=== PATIENT | male | born 1990 | race African-American/Black ===

== ENCOUNTER 2019-08-18 21:01 | Emergency (ER) | payer SELFPAY ==
[~2019-08-18] VITALS: Ht 177.8 cm; Wt 81.8 kg
--- NOTE | 2019-08-18 21:48 | PHYS DOC ---
Past Medical History Past Medical History: No Pertinent History (STEFANY STONE APRN) Past Surgical History: No Surgical History (STEFANY STONE APRN) Smoking Status: Never Smoker Alcohol Use: Occasionally (STEFANY STONE APRN) Attending Signature I have participated in the care of this patient and I have reviewed and agree with all pertinent clinical information above including history, exam, and recommendations. (DOUGIE AN MD) Adult General Chief Complaint Chief Complaint: LACERATION/[facility]ION [facility] Patient is a 29 year old male who presents with laceration to the left forearm. The patient cut his forearm on accident with some glass 4 hours prior to arrival. Denies any other symptoms. States he tried to stay home however would not stop bleeding. Does not know when his last tetanus shot was. Complete ROS were reviewed and found to be within normal limits, except as docum ented in the [facility] (STEFANY STONE APRN) Current Medications Current Medications Current Medications Medications (Trade) Dose Ordered Sig/Al Start Time Stop Time Status Last Admin Dose Admin Diphtheria/ Tetanus/Acell Pertussis (ADACEL TDap SYRINGE) 0.5 ml ONCE ONCE 08/18/19 22:00 08/18/19 22:01 DC 08/18/19 21:56 0.5 ML Lidocaine/ Epinephrine (LIDOCAINE 2%-EPI 1:100,000 multi-dose) 20 ml 1X ONCE 08/18/19 22:00 08/18/19 22:01 DC 08/18/19 22:00 20 ML Neomycin/ Polymyxin/ Bacitracin (Triple Antibiotic Ointment) 1 pkt 1X ONCE 08/18/19 22:45 08/18/19 22:46 DC 08/18/19 22:47 1 PKT (DOUGIE AN MD) Allergies Allergies Allergies Coded Allergies Type Severity Reaction Last Updated Verified iodine Allergy Severe 08/18/19 Yes Uncoded Allergies Type Severity Reaction Last Updated Verified Shell fish Allergy Severe Anaphylaxis 08/18/19 (DOUIGE AN MD) Physical Exam Physical Exam Constitutional: Well developed, well nourished, no acute distress, non-toxic appearance. [] Skin: 1.5 inch laceration to L forearm. Neurologic: Alert and oriented X 3, normal motor function, normal sensory function, no focal deficits noted. [] Psychologic: Affect normal, judgement normal, mood normal. [] (STEFANY STONE APRN) Current Patient Data Vital Signs Vital Signs Date Time Temp Pulse Resp B/P (MAP) Pulse Ox O2 Delivery O2 Flow Rate FiO2 08/18/19 23:02 98.1 100 18 138/72 (94) 99 Room Air 98.1 (DOUGIE AN MD) EKG EKG [] (STEFANY STONE APRN) Radiology/Procedures Radiology/Procedures Indication: Laceration to L forearm Procedure: The patient was placed in the appropriate position and anesthesia around the lidocaine with epi. The area was then cleaned with normal saline. The laceration was closed with 8 4-0 nylon sutures. The wound area was then dressed with dressing and neosporin. Total repaired wound length: 1.5 inches. The patient tolerated the procedure well. Complications: none. (STEFANY STONE APRN) Course & Med Decision Making Course & Med Decision Making Pertinent Labs and Imaging studies reviewed. (See chart for details) We will suture patient. Sutured the patient and discussed with him he needs to come back in 7 to 10 days to have the sutures removed. (STEFANY STONE APRN) Dragon Disclaimer Dragon Disclaimer This electronic medical record was generated, in whole or in part, using a voice recognition dictation system. (STEFANY STONE APRN) Departure Departure Impression: Primary Impression: Laceration Disposition: 01 HOME, SELF-CARE Condition: STABLE Referrals: NO PCP (PCP) Patient Instructions: Laceration Care, Adult Additional Instructions: Thank you for visiting [facility]. We appreciate you trusting us with your care. If any additional problems come up don't hesitate to return to visit us. Please follow up with your primary care provider so they can plan additional care if needed and know about the problem that you had. If symptoms worsen come back to the Emergency Department. Any concerning symptoms that start such as chest pain, shortness of air, weakness or numbness on one side of the body, running high fevers or any other concerning symptoms return to the ER. Please keep your wound dry, especially for the first 24 hours. After the first 24 hours you can wet the wound for a short time. Do not soak the wound or swim until the sutures have been removed. Please have the sutures removed in 7-10 days by your primary care doctor or return to ER for removal. Please keep the wound clean and change your bandage at least twice per day. You can use Neosporin on the wound to help reduce the chance of infection. If you notice signs of infection such as drainage from the wound (Pus), redness, increased pain or swelling return to ER for treatment. STEFANY STONE APRN Aug 18, 2019 21:48 DOUGIE AN MD Aug 18, 2019 23:19
[2019-08-18] MEDS ORDERED: LIDOCAINE 2%/EPI 1:100,000 20 ML VIAL. IJ ONE (22:00)
[2019-08-18] MEDS ORDERED: DIPH,PERTUSS(ACELL),TET VAC/PF 0.5 ML SYRINGE. VAX IM ONE (22:00)
[2019-08-18] MEDS ORDERED: NEOMY/BACITR/POLYMYXIN OINT PACKET. TP ONE (22:45)
[2019-08-18 23:02] VITALS: BP 138/72
== END 2019-08-18 23:02 | disposition home or self-care (01) ==
LOC: ER 21:01
DX: S51.812A Laceration without foreign body of left forearm, initial encounter (principal); Z91.018 Allergy to other foods; Z88.1 Allergy status to other antibiotic agents; Z88.4 Allergy status to anesthetic agent; W25.XXXA Contact with sharp glass, initial encounter; Y93.89 Activity, other specified; Y92.89 Other specified places as the place of occurrence of the external cause; Y99.8 Other external cause status
CPT/HCPCS: 12002; 90471; 90715; 99283; J3490